=== PATIENT | male | born 1955 | race Caucasian/White ===

== ENCOUNTER 2021-10-14 11:20 | Outpatient (CLI) | payer MEDICARE, BC, SELFPAY ==
[2021-10-14 21:25] LABS: Chloride* 102 mmol/L (96-114); Sodium* 138 mmol/L (135-149)
[2021-10-14 21:28] LABS: Estimated Glomerular Filt Rate 82 ml/min
[2021-10-14 21:29] LABS: Blood Urea Nitrogen* 23 mg/dL (7-30); Calcium* 9.3 mg/dL (8.4-10.6); Carbon Dioxide* 29 mmol/L (20-32); Glucose* 127 mg/dL (60-115); Uric Acid* 7.4 mg/dL (2.2-8.4)
[2021-10-14 21:33] LABS: C Reactive Protein* < 0.5 mg/dL (0.5-1.0)
== END 2021-10-14 11:21 | disposition home or self-care (01) ==
PROVIDERS: PCP Family Medicine; Visit Provider Family Medicine
DX: M79.673 Pain in unspecified foot (principal)
CPT/HCPCS: 80048; 84550; 86140

== ENCOUNTER 2021-12-12 09:37 | Outpatient (CLI) | payer MEDICARE, BC, SELFPAY ==
--- NOTE | 2021-12-12 10:15 | MR_ITS ---
[facility] [address] [facility] [address] Phone:?[phone] Fax:?[phone] Referring Physician Information: Sourav Johnson M.D. [address] [facility] [address] Phone:?[phone] Fax:?[phone] Patient:Jenelle Barrett D.O.B:?1955 Sex:?Male Phone:?[phone] [facility] MRN:?[id number] Exam Date:?12/12/2021 ? EXAM: MRI OF THE LEFT FOOT WITHOUT CONTRAST CLINICAL INFORMATION: Chronic pain and swelling. No history of surgery to this area. TECHNICAL INFORMATION: Axial PD and STIR. Sagittal PD and T2. Coronal T2 and STIR images acquired. INTERPRETATION: Tibiotalar joint: No discrete talar dome osteochondral lesion. The tibiotalar joint osteochondral surfaces appear relatively preserved. There is a small tibiotalar joint effusion. Subtalar joints: No discrete osteochondral lesion. No other subchondral signal abnormality. No abnormal joint effusion and without discrete loose body. Other tarsal joints: There is a marked appearance of bone marrow edema signal identified involving the medial cuneiform bone. As seen on series 7 images 14 through 16 as well as series 3 image 10, appearance of a 1.1 x 0.7 cm minimal impaction fracture involving the dorsomedial aspect of the bone alongside the first TMT joint. Ligaments: The anterior tibiofibular ligament is intact. Residua of a chronic sprain injury with full-thickness tear involving the anterior talofibular ligament. The posterior tibiofibular and posterior talofibular ligaments are intact. Chronic sprain injury of intact fibers of the calcaneofibular ligament. The superficial and deep portions of the medial deltoid ligament are intact. The Lisfranc ligament is seen to be normally intact. There is an unremarkable appearance of TMT joint alignment. Tendons: The peroneus longus and brevis tendons are intact. No significant tendinopathy, and without tenosynovitis, tendon split or tendon disruption. The posterior tibialis, flexor digitorum and flexor hallucis longus tendons are intact. No significant tendinopathy and without tenosynovitis, tendon split or tendon disruption. The extensor tendons are intact. The Achilles tendon is intact. Plantar aponeurosis: The plantar fascia origin appears normal in signal intensity and morphology. The remainder of the visualized plantar aponeurosis appears unremarkable. Neurovascular structures: The posterior tibial neurovascular structures appear unremarkable coursing past the ankle and through the tarsal tunnel. CONCLUSION: 1. There is a 1.1 x 0.7 cm minimal impaction fracture involving the dorsolateral aspect of the medial cuneiform bone alongside the first TMT joint. There are marked changes of adjacent bone marrow edema signal. 2. Residua of chronic lateral ankle ligament sprain injuries including full- thickness tear involving the anterior talofibular ligament. 3. No appreciable changes of tendon pathology. 4. The Lisfranc ligament is normally intact. Unremarkable TMT joint alignment. KES Electronically signed on 12/12/2021 3:13:00 PM by Eric Paulson M.D.
== END 2021-12-12 09:38 | disposition home or self-care (01) ==
LOC: MRI 09:38
PROVIDERS: PCP Family Medicine; Visit Provider Family Medicine
DX: M79.672 Pain in left foot (principal); S92.242A Displaced fracture of medial cuneiform of left foot, initial encounter for closed fracture
CPT/HCPCS: 73718

== ENCOUNTER 2022-06-29 09:39 | Outpatient (CLI) | payer MEDICARE, BC, SELFPAY ==
[2022-06-29 14:03] LABS: Chloride* 101 mmol/L (96-114); Potassium* 3.9 mmol/L (3.6-5.1); Sodium* 138 mmol/L (135-149)
[2022-06-29 14:06] LABS: Alanine Aminotransferase* 31 U/L (4-50); Blood Urea Nitrogen* 17 mg/dL (7-30); Carbon Dioxide* 29 mmol/L (20-32); Cholesterol* 135 mg/dL (90-199); Estimated Glomerular Filt Rate 82 ml/min; Glucose* 138 mg/dL (60-115); Triglycerides* 146 mg/dL (40-149)
[2022-06-29 14:07] LABS: Calcium* 8.7 mg/dL (8.4-10.6); HDL Cholesterol* 37 mg/dL (>=40); LDL Cholesterol Calculated 69 mg/dL (<100)
[2022-06-29 14:37] LABS: PSA Screen* 2.94 ng/mL (0.10-4.00)
== END 2022-06-29 09:40 | disposition home or self-care (01) ==
LOC: FBOREF 09:41
PROVIDERS: PCP Family Medicine; Visit Provider Family Medicine
DX: E78.5 Hyperlipidemia, unspecified (principal); I10 Essential (primary) hypertension; E11.9 Type 2 diabetes mellitus without complications; Z12.5 Encounter for screening for malignant neoplasm of prostate
CPT/HCPCS: 80048; 80061; 84153; 84460

== ENCOUNTER 2023-07-06 08:57 | Outpatient (CLI) | payer BC, SELFPAY | END 2023-07-06 08:58 | disposition home or self-care (01) | PROVIDERS: PCP Family Medicine; Visit Provider Family Medicine | DX: E78.2 Mixed hyperlipidemia (principal); I10 Essential (primary) hypertension; Z80.42 Family history of malignant neoplasm of prostate; Z12.5 Encounter for screening for malignant neoplasm of prostate | CPT/HCPCS: 80048; 80061; 84460; G0103 ==

== ENCOUNTER 2023-07-20 07:04 | Outpatient (CLI) | payer MEDICARE, SELFPAY ==
--- NOTE | 2023-07-20 08:46 | W.ANESCHARGE ---
Anesthesia Charges Start Date/Time Anesthesia Start Date: 07/20/23 Anesthesia Start Time: 08:05 Stop Date/Time Anesthesia Stop Date: 07/20/23 Anesthesia Stop Time: 08:43
--- NOTE | 2023-07-20 11:31 | W.ANESCHARGE ---
Anesthesia Charges Start Date/Time Anesthesia Start Date: 07/20/23 Anesthesia Start Time: 08:05 Stop Date/Time Anesthesia Stop Date: 07/20/23 Anesthesia Stop Time: 08:43
== END 2023-07-20 07:05 | disposition home or self-care (01) ==
LOC: OP CLINIC 07:04
PROVIDERS: PCP Family Medicine; Visit Provider Surgery
DX: Z12.11 Encounter for screening for malignant neoplasm of colon (principal); K63.5 Polyp of colon; K57.30 Diverticulosis of large intestine without perforation or abscess without bleeding
CPT/HCPCS: 00811; 45385; 88305; J2704

== ENCOUNTER 2023-09-07 19:36 | Outpatient (CLI) | payer MEDICARE, SELFPAY ==
--- NOTE | 2023-09-14 12:24 | W.PM.SLEEP ---
Sleep Study Details Details Interpreting Provider: Emily Date of Sleep Study: 09/07/23 Sleep Study Details: STUDY TYPE:? Home unattended ? BMI:? 33.4 ORDERING PROVIDER:? Emily INDICATION:? Concerns about sleep apnea ? SLEEP SUMMARY:? 375 minutes monitored RESPIRATORY SUMMARY:? AHI 50.7 with minimal positional variation Low oxygen 82 9.8% of study oxygen less than 90% Snoring 53.8% PERIODIC LIMB MOVEMENTS OF SLEEP:? Not recorded CARDIAC:? Range 32-90, mean 54.2 IMPRESSION:? Bradycardia noted during this study. Further cardiac evaluation may be indicated Severe obstructive sleep apnea with significant hypo oxygenation RECOMMENDATION: Further cardiac evaluation may be indicated due to bradycardia noted during study. Regarding the sleep apnea treatment options would include AutoSet CPAP versus in-lab titration.
== END 2023-09-07 19:37 | disposition home or self-care (01) ==
LOC: SLEEP 19:37
PROVIDERS: PCP Family Medicine; Visit Provider Otolaryngology
DX: G47.33 Obstructive sleep apnea (adult) (pediatric) (principal); R00.1 Bradycardia, unspecified
CPT/HCPCS: 95806

== ENCOUNTER 2023-12-26 18:40 | Emergency (ER) | payer MEDICARE, SELFPAY ==
[2023-12-26 18:45] VITALS: BP 137/73; PULSE 58; RESP 18; TEMP 36.2; O2SAT 98; BMI 29.7
--- NOTE | 2023-12-26 18:49 | ED.SKABFB ---
HPI - Skin/Abscess/Foreign Bdy General Time Seen by Provider: 18:49 Date Seen: 12/26/23 Chief complaint: Skin/Abscess/Foreign Body Stated complaint: meat stuck in throat Time Seen by Provider: 12/26/23 18:49 Source: patient and RN notes reviewed Mode of arrival: ambulatory Limitations: no limitations History of Present Illness HPI narrative: 68-year-old male coming in with food bolus impaction starting about an hour and a half ago prior to arrival. Was eating some pork roast that got stuck. He does state he tries to eat small amounts and to chew well. He is having no difficulty breathing. He did try to drink in the fluid came right back up. He has not had an EGD since I ordered 1 when he was in clinic with me, he use to be 1 of my primary care patients. This has been years ago. He does endorse some heartburn, usually will be at night when he attempts to lie down. They will be leaving for [place] in about 3 weeks. Related Data Home Medications ?Medication ?Instructions ?Recorded ?Confirmed aspirin 81 mg tablet,delayed 81 mg PO QDAY 10/14/21 11/24/23 release (Adult Aspirin Regimen) cpap inhalation 11/06/21 11/24/23 Diabetic Test Strips 12/26/21 11/24/23 cyclobenzaprine 10 mg tablet 5 - 10 mg PO .Bedtime as needed PRN 06/29/22 11/24/23 magnesium PO 07/06/23 11/24/23 Previous Rx's ?Medication ?Instructions ?Recorded albuterol sulfate 90 mcg/actuation 2 puff inhalation Q4-6H PRN 12/26/21 aerosol inhaler shortness of breath or wheezing #8.5 grams amlodipine 5 mg tablet 5 mg PO QDAY #90 tabs 07/06/23 hydrochlorothiazide 25 mg tablet 25 mg PO DAILY #90 tabs 07/12/23 lisinopril 40 mg tablet 40 mg PO DAILY #90 tabs 07/12/23 metformin 500 mg tablet,extended 1,000 mg (2 x 500 mg) PO QDAY #180 07/12/23 release 24 hr tabs rosuvastatin 5 mg tablet 5 mg PO QHS #90 tabs 07/12/23 famotidine 20 mg tablet 20 mg PO BID #60 tabs 12/26/23 Allergies Allergy/AdvReac Type Severity Reaction Status Date / Time No Known Drug Allergies Allergy Verified 11/24/23 14:28 Review of Systems Narrative: As per HPI. [facility] PFS Medical History Sinus bradycardia ?R00.1 - Bradycardia, unspecified (ICD-10) Foot fracture, left ?S92.902A - Unspecified fracture of left foot, initial encounter for closed fracture (ICD-10) Type 2 diabetes mellitus, without long-term current use of insulin ?E11.9 - Type 2 diabetes mellitus without complications (ICD-10) Mixed hyperlipidemia ?E78.2 - Mixed hyperlipidemia (ICD-10) Primary hypertension ?I10 - Essential (primary) hypertension (ICD-10) Mild intermittent asthma ?J45.20 - Mild intermittent asthma, uncomplicated (ICD-10) Rupture of ligament of left ankle ?S93.402A - Sprain of unspecified ligament of left ankle, initial encounter (ICD-10) Obstructive sleep apnea syndrome (08/15/09) ?G47.33 - Obstructive sleep apnea (adult) (pediatric) (ICD-10) Hiatal hernia (08/15/09) ?K44.9 - Diaphragmatic hernia without obstruction or gangrene (ICD-10) Colon polyp (08/15/09) ?K63.5 - Polyp of colon (ICD-10) Surgical History History of tonsillectomy and adenoidectomy (08/20/09) ?Z90.89 - Acquired absence of other organs (ICD-10) History of cholecystectomy (08/15/09) ?Z90.49 - Acquired absence of other specified parts of digestive tract (ICD-10) History of appendectomy (08/20/09) ?Z90.49 - Acquired absence of other specified parts of digestive tract (ICD-10) Family History Father Prostate cancer Brother Abdominal aortic aneurysm Heart disease Uncle Prostate cancer Social History Narrative: , two kids, retired, non-smoker What is your current living situation?: I presently have a place to live Problems where you live: no known problems In the past 12 months, utilities in danger of being shut off: no In past 12 months, lack of transportation kept you from medical appts, meetings, work, or getting things needed for daily living: no In the past 12 mos, have been you worried that your food would run out before you had money to buy more?: never true In the past 12 mos, the food you bought just didn't last and you didn't have money to buy more?: never true Smoking Status: Former smoker Do you use any of these nicotine containing products: None Second hand tobacco smoke exposure: No How often do you have a drink containing alcohol: never AUDIT-C Alcohol total score: 0 Non-prescribed substance use: denies use How often does anyone, including family, friends and others, physically hurt you: never How often does anyone, including family, friends and others, insult or talk down to you: never How often does anyone, including family, friends and others, threaten you with harm: never How often does anyone, including family, friends and others, scream or curse at you: never Little interest or pleasure in doing things: not at all Feeling down, depressed, or hopeless: not at all service: No Exam Const: Vital Signs, click to edit/add: Vital Signs - 24 hr 12/26/23 18:45 Temperature 97.2 F L Pulse Rate [Right Pulse Oximeter] 58 L Respiratory Rate 18 Blood Pressure [Ri ght Upper Arm] 137/73 Pulse Oximetry 98 Oxygen Delivery Me thod Room Air Wilfred is a very pleasant 68-year-old male, alert, interactive, no apparent distress. Sclera clear, face atraumatic, able to speak in complete sentences and speech/voice is normal. Neck done a jugular venous distension. Lungs are clear, good air entry, no wheezing or crackles. CV regular rate and rhythm, no murmur. Abdomen soft, nontender. Documenting provider has reviewed patient's vital signs: yes Course Course ED Course: Patient was given E-Z gas granules and was able to swallow after that. This did help promote the resolution and swallowing of the meat. Discussed with rest and his family that he really should have an EGD done. 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 We will write for some Pepcid. They see Dr. Johnson in clinic, I will be happy to put the order in for endoscopy for EGD to facilitate this being done quickly as they are going to try to leave for [place]. Vital Signs Vital signs: Initial Vital Signs Temperature 97.2 F L 12/26/23 18:45 Temperature Source Temporal Artery Scan 12/26/23 18:45 Pulse Rate 58 L 12/26/23 18:45 Respiratory Rate 18 12/26/23 18:45 Blood Pressure 137/73 12/26/23 18:45 Blood Pressure Mean 94 12/26/23 18:45 Blood Pressure Position Sitting 12/26/23 18:45 Pulse Oximetry 98 12/26/23 18:45 Oxygen Delivery Method Room Air 12/26/23 18:45 Vital Signs Temperature 97.2 F L 12/26/23 18:45 Pulse Rate 58 L 12/26/23 18:45 Respiratory Rate 18 12/26/23 18:45 Blood Pressure 137/73 12/26/23 18:45 Pulse Oximetry 98 12/26/23 18:45 Oxygen Delivery Method Room Air 12/26/23 18:45 Temperature 97.2 F L 12/26/23 18:45 Pulse Rate 58 L 12/26/23 18:45 Respiratory Rate 18 12/26/23 18:45 Blood Pressure 137/73 12/26/23 18:45 Pulse Oximetry 98 12/26/23 18:45 Oxygen Delivery Method Room Air 12/26/23 18:45 Medications Administered Medications: Generic Name Dose Route Start Last Admin Trade Name Freq PRN Reason Stop Dose Admin Simethicone/Sodium Bicarb/Citric Ac 1 each 12/26/23 18:57 12/26/23 19:00 Simethicone/Sod Bicarb/Cit Ac 1 Each Gran.Ef.Pk PO 12/26/23 18:58 1 each ONCE ONE Administration Discharge Plan Discharge Clinical Impression: Heartburn Impacted esophageal foreign body Qualifiers: Encounter type: initial encounter Qualified Code(s): T18.108A - Unspecified foreign body in esophagus causing other injury, initial encounter Patient Disposition: Home, Self-Care Condition: Stable Instructions: GERD (Gastroesophageal Reflux Disease) (ED), Esophageal Foreign Body (ED) Additional Instructions: Order has been put into endoscopy, if you have not heard from them during the day on Wednesday, please call Wednesday to the hospital and see if the endoscopy center can get you scheduled. Start the Pepcid and take as prescribed. May want to avoid breads and meats at this time, stay on more soft foods for the next few days. Make sure you take small bites and chew meat in breads up quite well before swallowing when you do go back to eating them. Activity Level: Activity as Tolerated Prescriptions: New famotidine 20 mg tablet 20 mg PO BID Qty: 60 2RF No Action cpap inhalation albuterol sulfate 90 mcg/actuation HFA aerosol inhaler 2 puff inhalation Q4-6H PRN (Reason: shortness of breath or wheezing) Qty: 8.5 5RF magnesium PO amlodipine 5 mg tablet 5 mg PO QDAY Qty: 90 1RF metformin 500 mg tablet extended release 24 hr 1,000 mg PO QDAY Qty: 180 3RF rosuvastatin 5 mg tablet 5 mg PO QHS Qty: 90 3RF hydrochlorothiazide 25 mg tablet 25 mg PO DAILY Qty: 90 3RF lisinopril 40 mg tablet 40 mg PO DAILY Qty: 90 3RF aspirin [Adult Aspirin Regimen] 81 mg tablet,delayed release (DR/EC) 81 mg PO QDAY (DME) Diabetic Test Strips Misc See Rx Instructions .Route Rx Instructions: use to check blood glucose 1 time daily cyclobenzaprine 10 mg tablet 5 - 10 mg PO .Bedtime as needed PRN Follow Up/Referrals: Sourav Johnson MD [Primary Care Provider] - Stand Alone Forms: [employer] Info Instructions
[2023-12-26] MEDS: SIMETHICONE/SOD BICARB/CIT AC 1 EACH GRAN.EF.PK PO (19:00)
== END 2023-12-26 19:32 | disposition home or self-care (01) ==
LOC: ED 19:24
PROVIDERS: Emergency Provider Family Medicine; PCP Family Medicine
DX: T18.108A Unspecified foreign body in esophagus causing other injury, initial encounter (principal); R12 Heartburn
CPT/HCPCS: 99282; 99283

== ENCOUNTER 2024-01-04 09:35 | Outpatient (CLI) | payer MEDICARE, SELFPAY ==
--- NOTE | 2024-01-04 10:06 | W.ANESCHARGE ---
Anesthesia Charges Start Date/Time Anesthesia Start Date: 01/04/24 Anesthesia Start Time: 10:19 Stop Date/Time Anesthesia Stop Date: 01/04/24 Anesthesia Stop Time: 10:43
--- NOTE | 2024-01-04 10:47 | W.ANESCHARGE ---
Anesthesia Charges Start Date/Time Anesthesia Start Date: 01/04/24 Anesthesia Start Time: 10:19 Stop Date/Time Anesthesia Stop Date: 01/04/24 Anesthesia Stop Time: 10:43
== END 2024-01-04 09:36 | disposition home or self-care (01) ==
LOC: OP CLINIC 09:36
PROVIDERS: PCP Family Medicine; Visit Provider Surgery
DX: R13.10 Dysphagia, unspecified (principal); K44.9 Diaphragmatic hernia without obstruction or gangrene; K22.89 Other specified disease of esophagus
CPT/HCPCS: 00731; 43239; 88305; J2704; J3010

== ENCOUNTER 2024-06-22 09:32 | Outpatient (CLI) | payer MEDICARE, SELFPAY | END 2024-06-22 09:33 | disposition home or self-care (01) | PROVIDERS: PCP Family Medicine; Visit Provider Family Medicine | DX: E78.2 Mixed hyperlipidemia (principal); I10 Essential (primary) hypertension; E11.65 Type 2 diabetes mellitus with hyperglycemia; Z79.84 Long term (current) use of oral hypoglycemic drugs | CPT/HCPCS: 80048; 80061; 84460; 85025 ==

== ENCOUNTER 2024-11-15 08:15 | Outpatient (CLI) | payer MEDICARE, SELFPAY | END 2024-11-15 08:16 | disposition home or self-care (01) | LOC: FBOREF 08:15 | PROVIDERS: PCP Family Medicine; Visit Provider Family Medicine | DX: Z12.5 Encounter for screening for malignant neoplasm of prostate (principal) | CPT/HCPCS: G0103 ==